=== PATIENT | female | born 1975 | race African-American/Black ===

== ENCOUNTER 2017-01-09 18:47 | Emergency (ER) | payer OTHER ==
[~2017-01-09] VITALS: Ht 160 cm; Wt 109.0 kg
[~2017-01-09 18:47] MED LIST: ALBU6.7H INH; ATOR40TA49 PO; BACT800T5 PO; FERR324T4 PO; FLOV110A INH; MEDR10 PO; METO25 PO; PERC5TAB12 PO; PROT40TA PO
[2017-01-09 18:48] VITALS: BP 166/80; PULSE 99; RESP 20; TEMP 98.5; O2SAT 100
[2017-01-09] MEDS ORDERED: LORazepam 2 MG/ML VIAL IV PUSH ONE (20:15)
[2017-01-09] MEDS ORDERED: SODIUM CHLOR 0.9% 1000 ML INJ 1,000 ML IV ONE (20:15)
[2017-01-09] MEDS ORDERED: diphenhydrAMINE HCL 50 MG/ML VIAL IV PUSH ONE (20:15)
[2017-01-09] MEDS ORDERED: METOCLOPRAMIDE INJ 10 MG in SODIUM CHLORIDE 0.9% INJ 50 ML IV ONE (20:15)
--- NOTE | 2017-01-09 20:32 | PD ---
HPI Chief Complaint: Headache Time Seen by Provider: 19:16 Travel History International Travel<30 days: No Contact w/Intl Traveler<30days: No Traveled to known affect area: No History of Present Illness HPI [place] and palms pale and tingling. possible muscle tension in neck muscle causing pinch nerves of hands PFSH Past Medical History Anemia: Yes Arthritis: No Asthma: Yes Autoimmune Disease: No Blood Disorders: No Anxiety: Yes Depression: Yes Heart Rhythm Problems: No Cancer: No Cardiovascular Problems: Yes (HTN, ANEMIA) High Cholesterol: Yes Chemotherapy: No Chest Pain: Yes Congestive Heart Failure: No COPD: No Cerebrovascular Accident: No Diabetes: Yes ("BORDERLINE") Patient Takes Glucophage: No Diminished Hearing: No Endocrine: No Gastrointestinal Disorders: No GERD: Yes Glaucoma: No Genitourinary: Yes (HEAVY MENSTRUAL BLEEDING, GENITAL HERPES) Headaches: Yes Hepatitis: No Hiatal Hernia: No Hypertension: Yes Immune Disorder: No Kidney Stones: No Musculoskeletal: No Neurologic: No Psychiatric: Yes Reproductive: No Respiratory: Yes (ASTHMA) Immunizations Current: Yes Migraines: Yes Myocardial Infarction: No Radiation Therapy: No Renal Failure: No Seizures: No Sickle Cell Disease: No Sleep Apnea: No Thyroid Disease: No Ulcer: No Influenza Vaccination: No ?: Not LMP: 01/04/17 : 5 Para: 5 Miscarriage: 0 : 0 Tubal Ligation: Yes Past Surgical History Abdominal Surgery: Yes () AICD: No Arteriovenous Shunt: No Cardiac Surgery: No Section: Yes (2 ) Ear Surgery: No Endocrine Surgery: No Eye Surgery: No Genitourinary Surgery: No Gynecologic Surgery: Yes (C/SECTION X 2) Insulin Pump: No Joint Replacement: No Neurologic Surgery: No Oral Surgery: No Pacemaker: No Thoracic Surgery: No Other Surgery: Yes Social History Alcohol Use: Yes (SOCIAL) Tobacco Use: No (quit 5 years ago) Substance Use: No (Smokes marijuana ) Allergies-Medications (Allergen,Severity, Reaction): Coded Allergies: Fish Containing Products (Verified Allergy, Severe, Respiratory Failure, 01/09/17) acetaminophen (Verified Allergy, Severe, swelling, 01/09/17) hydrocodone (Verified Allergy, Severe, swelling, 01/09/17) penicillin G (Verified Allergy, Severe, itching, swelling, 01/09/17) Reported Meds & Prescriptions Reported Meds & Active Scripts Active No Active Prescriptions or Reported Medications Review of Systems Except as stated in HPI: all other systems reviewed are Neg HENT: Positive: Headaches Neurologic: Positive: Headache, Paresthesia Physical Exam Narrative GENERAL: SKIN: Warm and dry. HEAD: Atraumatic. Normocephalic. EYES: Pupils equal and round. No scleral icterus. No injection or drainage. ENT: No nasal bleeding or discharge. Mucous membranes pink and moist. NECK: Trachea midline. No JVD. CARDIOVASCULAR: Regular rate and rhythm. RESPIRATORY: No accessory muscle use. Clear to auscultation. Breath sounds equal bilaterally. GASTROINTESTINAL: Abdomen soft, non-tender, nondistended. Hepatic and splenic margins not palpable. MUSCULOSKELETAL: Extremities without clubbing, cyanosis, or edema. No obvious deformities. NEUROLOGICAL: Awake and alert. No obvious cranial nerve deficits. Motor grossly within normal limits. Five out of 5 muscle strength in the arms and legs. Normal speech. PSYCHIATRIC: Appropriate mood and affect; insight and judgment normal. Data Data Last Documented VS Vital Signs Date Time Temp Pulse Resp B/P (MAP) Pulse Ox O2 Delivery O2 Flow Rate FiO2 01/10/17 00:02 01/10/17 00:01 90 16 99 Room Air 01/09/17 18:48 98.5 Orders Orders Metoclopramide Inj (Reglan Inj) (01/09/17 20:15) Diphenhydramine Inj (Benadryl Inj) (01/09/17 20:15) Lorazepam Inj (Ativan Inj) (01/09/17 20:15) Sodium Chlor 0.9% 1000 Ml Inj (Ns 1000 M (01/09/17 20:15) Electrocardiogram (01/09/17 19:17) Ed Discharge Order (01/09/17 23:51) [facility] Medical Decision Making Interpretation(s) EKG normal sinus HR 92 Narrative Course pt feels much better after sleepin g ativan benadryl and reglan took headache away Diagnosis Primary Impression: Head ache Qualified Codes: G44.209 - Tension-type headache, unspecified, not intractable Additional Impressions: Arm paresthesia, left Arm paresthesia, right Patient Instructions: Acute Headache (ED), General Instructions Scripts No Active Prescriptions or Reported Meds Disposition: 01 DISCHARGE HOME Condition: Good Galindo Blanco MD Jan 09, 2017 20:32
[2017-01-09 22:27] VITALS: BP 152/76; PULSE 87; RESP 16; O2SAT 99
[2017-01-10 00:01] VITALS: BP 148/78; PULSE 90; RESP 16; O2SAT 99
--- NOTE | 2017-01-10 16:34 | EKG ---
Date Performed: 01/09/2017 Time Performed: 19:17:27 PTAGE: 41 years EKG: Sinus rhythm NONSPECIFIC ST & T-WAVE ABNORMALITY BORDERLINE ECG Compared to PREVIOUS TRACING , there is some improvement in the ST-T changes generally. PREVIOUS TRAC IN03/20/2015 12.21 DOCTOR: Dave Thurston Interpretating Date/Time 01/10/2017 16:33:50
== END 2017-01-10 00:11 | disposition home or self-care (01) ==
LOC: NEPC 18:47
DX: R51 Headache (principal); R20.2 Paresthesia of skin; R94.31 Abnormal electrocardiogram [ECG] [EKG]; D64.9 Anemia, unspecified; J45.909 Unspecified asthma, uncomplicated; F41.9 Anxiety disorder, unspecified; I10 Essential (primary) hypertension; E11.9 Type 2 diabetes mellitus without complications; K21.9 Gastro-esophageal reflux disease without esophagitis
CPT/HCPCS: 93005; 96365; 96375; 99284; J1200; J2060; J2765; J7030

== ENCOUNTER 2017-06-07 22:09 | Emergency (ER) | payer OTHER ==
[2017-06-08] MEDS ORDERED: SODIUM CHLORIDE 0.9% FLUSH 10 ML FLUSH IVF (00:15)
[2017-06-08] MEDS: ONDANSETRON HCL 4 MG/2 ML VIAL IVP (00:46)
[2017-06-08] MEDS: MORPHINE SULFATE 4 MG/ML INJ IV PUSH (00:46)
[2017-06-08] MEDS: TETANUS/DIPHTHERIA TOXOID ADULT 0.5 ML VIAL IM (00:48)
== END 2017-06-08 03:32 | disposition home or self-care (01) ==
LOC: NEPC 22:09
DX: S09.93XA Unspecified injury of face, initial encounter (principal); S01.511A Laceration without foreign body of lip, initial encounter; D64.9 Anemia, unspecified; J45.909 Unspecified asthma, uncomplicated; F41.8 Other specified anxiety disorders; I10 Essential (primary) hypertension; K21.9 Gastro-esophageal reflux disease without esophagitis; Y04.2XXA Assault by strike against or bumped into by another person, initial encounter; Z23 Encounter for immunization
CPT/HCPCS: 12051; 70450; 70486; 90471; 90714; 96374; 96375; 99284-25

== ENCOUNTER 2017-07-23 20:02 | Emergency (ER) | payer SELFPAY ==
[~2017-07-23] VITALS: Ht 160 cm; Wt 110.0 kg
[~2017-07-23 20:02] MED LIST changes: +ALBU1.25 NEB; -ALBU6.7H INH; -ATOR40TA49 PO; -BACT800T5 PO; -FERR324T4 PO; -FLOV110A INH; -MEDR10 PO; -METO25 PO; -PERC5TAB12 PO; -PROT40TA PO
[2017-07-23 20:38] VITALS: BP 142/63; PULSE 89; RESP 16; TEMP 99; O2SAT 100
[2017-07-23] MEDS ORDERED: KETOROLAC TROMETHAMINE 30 MG/ML (IVP) VIAL IV PUSH ONE (21:15)
[2017-07-23] MEDS ORDERED: METOCLOPRAMIDE INJ 10 MG in SODIUM CHLORIDE 0.9% INJ 50 ML IV ONE (21:15)
--- NOTE | 2017-07-23 21:21 | PD ---
HPI Chief Complaint: Lump, Cyst, Hernia Time Seen by Provider: 21:00 Travel History International Travel<30 days: No Contact w/Intl Traveler<30days: No Traveled to known affect area: No History of Present Illness HPI 41yo F with PMH of migraine presents to the ED with multiple complaints. She said she started having midsternal lump that is painful for 2 days. Denies any trauma. Said she feels sob. Denies any chest pain except where the lump is. Pt also with occipital headache since last night. Feels like her usual migraine. Denies any fever, n/v, abdominal pain, focal weakness or numbness. PFSH Past Medical History Anemia: Yes Arthritis: No Asthma: Yes Autoimmune Disease: No Blood Disorders: No Anxiety: Yes Depression: Yes Heart Rhythm Problems: No Cancer: No Cardiovascular Problems: Yes (HTN, ANEMIA) High Cholesterol: Yes Chemotherapy: No Chest Pain: Yes Congestive Heart Failure: No COPD: No Cerebrovascular Accident: No Diabetes: Yes ("BORDERLINE") Patient Takes Glucophage: No Diminished Hearing: No Endocrine: No Gastrointestinal Disorders: No GERD: Yes Glaucoma: No Genitourinary: Yes (HEAVY MENSTRUAL BLEEDING, GENITAL HERPES) Headaches: Yes Hepatitis: No Hiatal Hernia: No Hypertension: Yes Immune Disorder: No Kidney Stones: No Musculoskeletal: No Neurologic: No Psychiatric: Yes Reproductive: No Respiratory: Yes (ASTHMA) Immunizations Current: Yes Migraines: Yes Myocardial Infarction: No Radiation Therapy: No Renal Failure: No Seizures: No Sickle Cell Disease: No Sleep Apnea: No Thyroid Disease: No Ulcer: No Influenza Vaccination: No ?: Not : 5 Para: 5 Miscarriage: 0 : 0 Tubal Ligation: Yes Past Surgical History Abdominal Surgery: Yes () AICD: No Arteriovenous Shunt: No Cardiac Surgery: No Section: Yes (2 ) Ear Surgery: No Endocrine Surgery: No Eye Surgery: No Genitourinary Surgery: No Insulin Pump: No Joint Replacement: No Neurologic Surgery: No Oral Surgery: No Pacemaker: No Thoracic Surgery: No Other Surgery: Yes Social History Alcohol Use: Yes (SOCIAL) Tobacco Use: No (quit 5 years ago) Substance Use: No Allergies-Medications (Allergen,Severity, Reaction): Coded Allergies: Fish Containing Products (Verified Allergy, Severe, Respiratory Failure, 01/09/17) acetaminophen (Verified Allergy, Severe, swelling, 01/09/17) hydrocodone (Verified Allergy, Severe, swelling, 01/09/17) penicillin G (Verified Allergy, Severe, itching, swelling, 01/09/17) Reported Meds & Prescriptions Reported Meds & Active Scripts Active Reported Albuterol Neb (Albuterol Sulfate) 1.25 Mg/3 Ml Neb 1.25 Mg NEB Q4HR NEB PRN Review of Systems Except as stated in HPI: all other systems reviewed are Neg Physical Exam Narrative GENERAL: 41yo F in mild distress. SKIN: +TTP induration that is skin color midsternum with a yellow point in middle. HEAD: Atraumatic. Normocephalic. EYES: Pupils equal and round at 3mm bilaterally. EOMI. No scleral icterus. No injection or drainage. ENT: No nasal bleeding or discharge. Mucous membranes pink and moist. NECK: Trachea midline. No JVD. CARDIOVASCULAR: Regular rate and rhythm. No murmur appreciated. RESPIRATORY: No accessory muscle use. Clear to auscultation. Breath sounds equal bilaterally. GASTROINTESTINAL: Abdomen soft, non-tender, nondistended. MUSCULOSKELETAL: No obvious deformities. No clubbing. No cyanosis. No edema. NEUROLOGICAL: Awake and alert. No obvious cranial nerve deficits. Motor grossly within normal limits in all extremities. Sensations intact. Normal speech. PSYCHIATRIC: Appropriate mood and affect; insight and judgment normal. Data Data Last Documented VS Vital Signs Date Time Temp Pulse Resp B/P (MAP) Pulse Ox O2 Delivery O2 Flow Rate FiO2 07/23/17 20:38 99.0 89 16 142/63 (89) 100 Orders Orders Complete Blood Count With Diff (07/23/17 21:07) Basic Metabolic Panel (Bmp) (07/23/17 21:07) Electrocardiogram (07/23/17 21:07) Ct Thorax/ Chest W Iv Contrast (07/23/17 ) Ketorolac Inj (Toradol Inj) (07/23/17 21:15) Metoclopramide Inj (Reglan Inj) (07/23/17 21:15) Iohexol 350 Inj (Omnipaque 350 Inj) (07/23/17 23:45) Labs Laboratory Tests Test 07/23/17 21:50 White Blood Count 11.7 TH/MM3 Red Blood Count 4.50 MIL/MM3 Hemoglobin 7.5 GM/DL Hematocrit 26.2 % Mean Corpuscular Volume 58.3 FL Mean Corpuscular Hemoglobin 16.6 PG Mean Corpuscular Hemoglobin Concent 28.4 % Red Cell Distribution Width 18.9 % Platelet Count 333 TH/MM3 Mean Platelet Volume 8.3 FL Neutrophils (%) (Auto) 78.9 % Lymphocytes (%) (Auto) 13.7 % Monocytes (%) (Auto) 4.9 % Eosinophils (%) (Auto) 1.5 % Basophils (%) (Auto) 1.0 % Neutrophils # (Auto) 9.3 TH/MM3 Lymphocytes # (Auto) 1.6 TH/MM3 Monocytes # (Auto) 0.6 TH/MM3 Eosinophils # (Auto) 0.2 TH/MM3 Basophils # (Auto) 0.1 TH/MM3 CBC Comment DIFF FINAL Differential Comment Blood Urea Nitrogen 8 MG/DL Creatinine 0.84 MG/DL Random Glucose 88 MG/DL Calcium Level 8.8 MG/DL Sodium Level 139 MEQ/L Potassium Level 3.6 MEQ/L Chloride Level 104 MEQ/L Carbon Dioxide Level 24.4 MEQ/L Anion Gap 11 MEQ/L Estimat Glomerular Filtration Rate 90 ML/MIN [facility] Medical Decision Making Medical Screen Exam Complete: Yes Emergency Medical Condition: Yes Interpretation(s) Laboratory Tests Test 07/23/17 21:50 White Blood Count 11.7 TH/MM3 (4.0-11.0) Red Blood Count 4.50 MIL/MM3 (4.00-5.30) Hemoglobin 7.5 GM/DL (11.6-15.3) Hematocrit 26.2 % (35.0-46.0) Mean Corpuscular Volume 58.3 FL (80.0-100.0) Mean Corpuscular Hemoglobin 16.6 PG (27.0-34.0) Mean Corpuscular Hemoglobin Concent 28.4 % (32.0-36.0) Red Cell Distribution Width 18.9 % (11.6-17.2) Platelet Count 333 TH/MM3 (150-450) Mean Platelet Volume 8.3 FL (7.0-11.0) Neutrophils (%) (Auto) 78.9 % (16.0-70.0) Lymphocytes (%) (Auto) 13.7 % (9.0-44.0) Monocytes (%) (Auto) 4.9 % (0.0-8.0) Eosinophils (%) (Auto) 1.5 % (0.0-4.0) Basophils (%) (Auto) 1.0 % (0.0-2.0) Neutrophils # (Auto) 9.3 TH/MM3 (1.8-7.7) Lymphocytes # (Auto) 1.6 TH/MM3 (1.0-4.8) Monocytes # (Auto) 0.6 TH/MM3 (0-0.9) Eosinophils # (Auto) 0.2 TH/MM3 (0-0.4) Basophils # (Auto) 0.1 TH/MM3 (0-0.2) CBC Comment DIFF FINAL Differential Comment Blood Urea Nitrogen 8 MG/DL (7-18) Creatinine 0.84 MG/DL (0.50-1.00) Random Glucose 88 MG/DL (74-106) Calcium Level 8.8 MG/DL (8.5-10.1) Sodium Level 139 MEQ/L (136-145) Potassium Level 3.6 MEQ/L (3.5-5.1) Chloride Level 104 MEQ/L (98-107) Carbon Dioxide Level 24.4 MEQ/L (21.0-32.0) Anion Gap 11 MEQ/L (5-15) Estimat Glomerular Filtration Rate 90 ML/MIN (>89) Last Impressions Chest CT 07/23/17 0000 Signed Impressions: CONCLUSION: 1. Questionable gallstones within the gallbladder. 2. Nonspecific lymph nodes in the axilla and some appear to be intramammary lo cation not visualized on the prior CT angiogram from 2016 possibly technical. T hese are nonspecific and clinical correlation is suggested. Differential Diagnosis Cellulitis vs. abscess vs. migraine headache Narrative Course 41yo F with painful induration right in midsternal, impression is more skin infection. However, it is difficult to evaluate if there is deeper infection since pt is very tender. No fluctuance. Pt also with headache that seems like migraine headache. Pt given reglan and toradol and headache has resolved. Labs reviewed, no leukocytosis. H/H low at 7.5/26.2. However, pt's baseline hemoglobin is 8.0 and she said she has anemia. Denies any bleeding. BMP unremarkable. CT chest showed clear lungs without infiltrate, nodule or mass. No pathological adenopathy seen within the mediastinum. There is incidental finding of lymph nodes in bilateral axilla which I informed her to follow up as outpatient. Questionable gallstone in gallbladder. Pt has no abdominal pain. Pt is well appearing, return precautions given. Diagnosis Primary Impression: Cellulitis Qualified Codes: L03.313 - Cellulitis of chest wall Additional Impression: Headache Qualified Codes: R51 - Headache Patient Instructions: General Instructions Departure Forms: Tests/Procedures Additional Instructions: Please follow up with your primary care physician regarding lymph nodes in your axilla. Return to the ED if symptoms worsen. Med/Other Pt SpecificInfo: Prescription(s) given Scripts Sulfamethoxazole-Trimethoprim (Bactrim DS) 800-160 Mg Tab 1 TAB PO BID for Infection, #14 TAB 0 Refills Prov: Arlene Nava DO 07/24/17 Disposition: 01 DISCHARGE HOME Condition: Stable Arlene Nava DO July 23, 2017 21:21
[2017-07-23 22:25] LABS: AUTOMATED NEUTROPHIL # 9.3 TH/MM3 (1.8-7.7); BASOPHIL # 0.1 TH/MM3 (0-0.2); EOSINOPHIL # 0.2 TH/MM3 (0-0.4); EOSINOPHIL % 1.5 % (0.0-4.0); HEMATOCRIT 26.2 % (35.0-46.0); HEMOGLOBIN 7.5 GM/DL (11.6-15.3); LYMPH % 13.7 % (9.0-44.0); LYMPHOCYTE # 1.6 TH/MM3 (1.0-4.8); MEAN CELL VOLUME 58.3 FL (80.0-100.0); MEAN CORPUSCULAR HEMOGLOBIN 16.6 PG (27.0-34.0); MEAN PLATELET VOLUME 8.3 FL (7.0-11.0); MONO % 4.9 % (0.0-8.0); MONOCYTE # 0.6 TH/MM3 (0-0.9); NEUT % 78.9 % (16.0-70.0); PLATELET COUNT 333 TH/MM3 (150-450); RED CELL DISTRIBUTION WIDTH 18.9 % (11.6-17.2); WHITE BLOOD COUNT 11.7 TH/MM3 (4.0-11.0)
[2017-07-23 22:29] LABS: MEAN CORPUSCULAR HGB CONC 28.4 % (32.0-36.0)
[2017-07-23 22:56] LABS: BICARBONATE 24.4 MEQ/L (21.0-32.0); CALCIUM 8.8 MG/DL (8.5-10.1); CREATININE 0.84 MG/DL (0.50-1.00)
[2017-07-23] MEDS ORDERED: IOHEXOL 350 MG/ML 10 ML VIAL (for RAD DIAG) IVCONTRAST ONE (23:45)
--- NOTE | 2017-07-24 00:10 | RADRPT ---
EXAM DATE: 07/23/2017 11:56 PM EDT AGE/SEX: 41 years / Female INDICATIONS: Patient states she has a lump on her upper chest. CLINICAL DATA: This is the patient's initial encounter. Patient reports that signs and symptoms have been present for 1 week and indicates a pain score of 7/10. MEDICAL/SURGICAL HISTORY: Hypertension. Anemia. Asthma. Tubal ligation. RADIATION DOSE: 20.22 CTDI (mGy) [place] [facility] [place]. . TECHNIQUE: Multiple contiguous axial images were obtained through the chest during bolus infusion of 75 ml Omnipaque 350 (iohexol) nonionic water-soluble contrast as a single exam dose. Images were obtained in suspended respiration using multiple row detector helical technique. Using automated exp osure control and adjustment of the mA and/or kV according to patient size, radiation dose was kept a s low as reasonably achievable to obtain optimal diagnostic quality images. FINDINGS: The lungs are clear without infiltrate, nodule, or mass. There is no pleural effusion. No appreciab le pathological adenopathy is seen within the mediastinum. There are lymph nodes in bilateral axilla with some appear to be intramammary location the largest measures 2.1 cm on the left and nonspecific. Small splenic splenule is seen. Questionable gallstones within the gallbladder. CONCLUSION: 1. Questionable gallstones within the gallbladder. 2. Nonspecific lymph nodes in the axilla and some appear to be intramammary location not visualized on the prior CT angiogram from 2016 possibly technical. These are nonspecific and clinical correlatio n is suggested. Electronically signed by: Quan Davidson MD 07/24/2017 12:09 AM EDT
[2017-07-24] MEDS ORDERED: BACT800T5 PO (00:39)
== END 2017-07-24 00:52 | disposition home or self-care (01) ==
LOC: NEPD 20:02
DX: L03.313 Cellulitis of chest wall (principal); R51 Headache
CPT/HCPCS: 71260; 80048; 85025; 96374; 96375; 99285; J1885; J2765; Q9967